=== PATIENT | male | born 1995 | race Caucasian/White ===

== ENCOUNTER 2024-01-21 15:20 | Emergency (ER) | payer BC, SELFPAY ==
[2024-01-21 15:24] VITALS: BP 138/84
--- NOTE | 2024-01-21 16:01 | ED.GENMED ---
History of Present Illness
General
Chief Complaint: Skin Surface Trauma
Source: patient
Exam Limitations: none
Time Seen by Provider: 01/21/24 15:28
Nursing documentation reviewed up to this point in time: agreed with
History of Present Illness
History of Present Illness:
28-year-old male with no past medical history presents emergency department today with concerns of a laceration to his left posterior hand. Patient reports that he was cleaning a glass plate when the plate broke and he dropped a piece of glass onto
his hand. Patient reports that he is going to [place] tomorrow and went to report to the emergency department to get the wound evaluated to ensure that it would not become infected. Patient reports that he did receive his Tdap vaccine updated 4
months ago. Patient does not take a blood thinner.
Past History
Past History
ED Past Medical History: None
ED Past Surgical History: None
Social History
Personal: Single
Living: with family
Employment: Employed
Review of Systems
Review of Systems
All Other Systems: ROS reviewed and negative except as documented in HPI and ROS
Phy Exam
Physical Exam
Physical Exam:
General: Patient is well appearing and in no acute distress; non-toxic
Skin: 2 cm actively bleeding laceration noted to left posterior hand, no foreign body within the laceration, no tendon or muscular involvement.. Brisk capillary refill.
Head: Normocephalic, atraumatic
Eyes: Sclera non-icteric. EOMs intact. PERRLA.
Cardiac: Regular rate
Pulm: Normal respiratory effort
Musculoskeletal: Full range of motion of left upper extremity. Full range of motion of the phalanges. Good flexor and extensor tendon strength.
Neuro: CN II-XII intact, no focal neurologic deficits. Sensation intact.
Psychiatric: Appropriate mood and affect.
Course
Vital Signs
Initial and Last Documented VS:
Initial Vital Signs
Temp Pulse Resp BP Pulse Ox
98.2 F 63 18 138/84 100
01/21/24 15:24 01/21/24 15:24 01/21/24 15:24 01/21/24 15:24 01/21/24 15:24
Last Documented Vital Signs
Temp Pulse Resp BP Pulse Ox
98.2 F 63 18 138/84 100
01/21/24 15:24 01/21/24 15:24 01/21/24 15:24 01/21/24 15:24 01/21/24 15:24
Procedures
Laceration Closure
Left Posterior Hand:
Status of Wound: clean
Size of Wound in cm: 2
Description of Wound Edges: sharp and flap-well vascularized
Preparation: cleaned with saline
Anesthesia: 1% Lidocaine
Revision/Debridement: minor revision
Wound exploration: explored to base- no FB and no tendon involvement
Type of Closure: single layer closure
Skin Closure Material: 4-0 prolene
Number of sutures: 5
MDM/Problems Addressed
Differential Diagnosis Includes:
Differentials include laceration, abrasion, foreign body
MDM/Problems Addressed:
28 year-old male presents emergency department today with concerns of laceration to the left posterior hand. It is 2 cm in length and is superficial. There is no foreign body within the wound. The wound was thoroughly irrigated with saline. I
first attempted to close the wound with Dermabond as it could be well-approximated and it was superficial however the wound bled through this. I then placed sutures. Bleeding controlled. Patient will follow-up to have the stitches removed.
Return precautions discussed.
*Critical Care Note
Total Time (30-74mins, 75-104mins- exclusive of procedures): Not Applicable
ED Attending Note
-
Portions of this chart may have been created with voice recognition software.� Occasional wrong word or��sound alike� substitutions may have occurred due to the inherent limitations of voice recognition software.
Discharge Plan
Departure
Patient Disposition: Home (Routine Discharge)
Date of Disposition: 01/21/24
Time of Disposition: 16:22
Patient with high blood pressure during this ER visit?: Yes
Condition: Good
Discharge Problem:
Laceration of hand
Instructions: Laceration Repair With Stitches (DC), BLOOD PRESSURE
Prescriptions:
No Action
fluoxetine 20 MG capsule
60 mg PO DAILY
atomoxetine [Strattera] 40 MG capsule
40 mg PO DAILY
prednisone 50 MG tablet
50 mg PO DAILY Qty: 5 0RF
clindamycin HCl 300 MG capsule
300 mg PO TID Qty: 30 0RF
prednisone 10 MG tablet
10 mg PO .TAPER Qty: 30 0RF
Rx Instructions:
Take 40mg daily x3days, 30mg daily x3days,
20mg daily x3days, 10mg daily x3days.
hydroxyzine HCl 25 MG tablet
25 mg PO QIDPRN PRN (Reason: itching) Qty: 15 0RF
Activity Restrictions/Additional Instructions:
Please keep your wound dry for 24 to 48 hours, after 24 hours, you can let mild warm soapy water run over the wound.
You can alternate Tylenol and Motrin for pain.
Please return to your PCP, urgent care, or the emergency department to have the stitches removed in 7 to 10 days.
Please return to the emergency department should you experience chest pain, shortness of breath, purulent drainage from the wound, fevers or chills, nausea or vomiting, or any other signs or symptoms concerning to you.
Interventions
Interventions:
*Risk Screen - Suicide Last Done: 01/21/24 16:49
*General Assessment Last Done: 01/21/24 16:49
*Neglect/Abuse Screening Last Done: 01/21/24 16:49
*ED COVID-19 Vaccine History Last Done: 01/21/24 16:49
*Nursing Disposition Last Done: 01/21/24 16:49
Discharge Date and Time
Discharge Date/Time: 01/21/24 16:50
Print Language: TAIWANESE
== END 2024-01-21 16:50 | disposition home or self-care (01) ==
LOC: EMR 15:20
PROVIDERS: EMERGENCY PHYSICIAN Student in an Organized Health Care Education/Training Program
DX: S61.412A Laceration without foreign body of left hand, initial encounter (principal); X58.XXXA Exposure to other specified factors, initial encounter
CPT/HCPCS: 99283; 12001